=== PATIENT | female | born 1985 | race Caucasian/White ===

== ENCOUNTER 2020-07-05 20:16 | Emergency (ER) | payer OTHER ==
--- NOTE | 2020-07-05 20:28 | ER Document Report ---
ED Extremity Problem, Lower - General Stated Complaint: RIGHT CATH AND LEG SWELLING Time Seen by Provider: 07/05/20 20:20 Primary Care Provider: ANGEL YEE MD [ACTIVE STAFF] - Follow up tomorrow Notes: Patient is a 34-year-old female that comes to the emergency department for chief complaint of swelling, tightness, and pain to the right proximal calf. Symptoms are worse with movement. She reports tightness and discomfort but denies severe pain, she denies injury. She does not have a history of DVT but she does travel frequently, she states she drove 19 hours in the past several days. She is on the [employer] She does not smoke. She denies . No other complaints. - Related Data Allergies/Adverse Reactions: No Known Allergies Allergy (Unverified 07/05/20 20:22) Past Medical History - General Information source: Patient - Social History Smoking Status: Never Smoker Frequency of alcohol use: None Drug Abuse: None Lives with: Spouse/Significant other Family History: Reviewed & Not Pertinent - Immunizations Immunizations up to date: Yes Hx Diphtheria, Pertussis, Tetanus Vaccination: Yes Review of Systems - Review of Systems Constitutional: No symptoms reported EENT: No symptoms reported Cardiovascular: No symptoms reported Respiratory: No symptoms reported Gastrointestinal: No symptoms reported Genitourinary: No symptoms reported Female Genitourinary: No symptoms reported Musculoskeletal: See HPI Skin: No symptoms reported Hematologic/Lymphatic: See HPI Neurological/Psychological: No symptoms reported Physical Exam - Vital signs Vitals: Temp Pulse Resp BP Pulse Ox 98.1 F 92 17 131/73 H 98 07/05/20 20:42 07/05/20 20:42 07/05/20 20:42 07/05/20 20:42 07/05/20 20:42 - Notes Notes: GENERAL: Alert, interacts well. No acute distress. HEAD: Normocephalic, atraumatic. EYES: Pupils equal, round, and reactive to light. Extraocular movements intact. ENT: Oral mucosa moist, tongue midline. Oropharynx unremarkable. Airway patent. LUNGS: Clear to auscultation bilaterally, no wheezes, rales, or rhonchi. No respiratory distress. Non-tender chest wall. HEART: Regular rate and rhythm. No murmur EXTREMITIES: Tenderness to the right general calf but especially to the proximal area. Slight swelling compared to the left, measured as 1 cm greater than the left. No signs of trauma, no erythema or signs of infection. Normal distal neurovascular exam, normal extremities otherwise. BACK: no cervical, thoracic, lumbar midline tenderness. Ambulates with normal gait. Moves all extremities in full range of motion. NEUROLOGICAL: Alert and oriented x3. Normal speech. Cranial nerves II through XII grossly intact. PSYCH: Normal affect, normal mood. SKIN: Warm, dry, normal turgor. No rashes or lesions noted. Course - Re-evaluation Re-evalutation: Venous Doppler ultrasound is positive for gastroc DVT, no other findings reported on preliminary results. I discussed with patient. Patient is a very experienced medical provider herself, she is very aware of her options, she d eclines Lovenox IM at this time, she was given Xarelto p.o., she was prescribed Xarelto, she states she has excellent primary care follow-up for additional management, she understands risks and return precautions. Stable and well- appearing at time of discharge. - Vital Signs Vital signs: Temp Pulse Resp BP Pulse Ox 98.1 F 92 17 131/73 H 98 07/05/20 20:42 07/05/20 20:42 07/05/20 20:42 07/05/20 20:42 07/05/20 20:42 Discharge - Discharge Clinical Impression: Deep vein thrombosis, lower right extremity Qualifiers: Affected thrombotic vein of extremity: calf muscle vein Chronicity: acute Qualified Code(s): I82.461 - Acute embolism and thrombosis of right calf muscular vein Condition: Stable Disposition: HOME, SELF-CARE Additional Instructions: You have a deep vein thrombosis in the right calf. Start the Xarelto as prescribed, call the hematology referral listed tomorrow for additional management. Return for any concerning symptoms including chest pain, shortness of breath, severe worsening swelling or pain, or any other concerning symptoms. Prescriptions: Ketorolac Tromethamine [Toradol 10 mg Tablet] 10 mg PO Q8HP PRN #30 tablet PRN Reason: Rivaroxaban [Xarelto 15 mg Tablet] 15 mg PO BID 21 Days #42 tablet Referrals: ANGEL YEE MD [ACTIVE STAFF] - Follow up tomorrow
[2020-07-05 20:53] VITALS: BP 131/73
[2020-07-05] MEDS ORDERED: RIVAROXABAN 15 MG TABLET PO ONE (21:12)
--- NOTE | 2020-07-05 21:39 | RADIOLOGY REPORT (SQ) ---
EXAM DESCRIPTION: US EXTREMITY VEINS UNILATERAL COMPLETED DATE/TME: 07/05/2020 20:20 CLINICAL HISTORY: 34 years, Female, RLE swelling and pain COMPARISON: None. TECHNIQUE: Grayscale imaging and Doppler imaging of the right lower extremity venous system were performed. LIMITATIONS: None. FINDINGS: There is no evidence of thrombus within the common femoral vein, superficial femoral vein, or popliteal vein. The visualized upper right greater saphenous vein appears patent. There is no thrombus identified within the posterior tibial or peroneal veins of the upper calf, however there is thrombus within the gastrocnemius/muscular veins of the calf. IMPRESSION: Isolated calf DVT as above. The proximal deep veins are patent. Preliminary report was reportedly provided by the stull installer at 9:10 PM. copyright 2010 [employer]- All Rights Reserved
== END 2020-07-05 21:24 | disposition home or self-care (01) ==
LOC: ER 20:16
DX: I82.461 Acute embolism and thrombosis of right calf muscular vein (principal); M79.89 Other specified soft tissue disorders
CPT/HCPCS: 93971; 99285

== ENCOUNTER → 2020-08-26 | Outpatient (CLI) | payer OTHER ==
[~2020-08-26] MED LIST: COVID-19 VACCINE (PFIZER)/PF 30 MCG/0.3 ML VIAL IM ONE; EPINEPHRINE INJ/PF 1 MG/1 ML AMPULE IM PRN
== END ==
LOC: EMPHEALTH 07:30
PROVIDERS: ATTEND Internal Medicine
DX: Z23 Encounter for immunization (principal)
CPT/HCPCS: 91300

== ENCOUNTER → 2020-09-16 | Outpatient (CLI) | payer OTHER | LOC: EMPHEALTH 10:36 | PROVIDERS: ATTEND Internal Medicine | DX: Z23 Encounter for immunization (principal) | CPT/HCPCS: 91300 ==